=== PATIENT | male | born 1995 | race Caucasian/White ===

== ENCOUNTER 2024-12-01 18:08 | Emergency (ER) | payer OTHER, SELFPAY ==
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
[2024-12-01 18:09] VITALS: BP 145/99; PULSE 70; RESP 18; TEMP 36.9; O2SAT 100
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
[2024-12-01] MEDS: KETOROLAC 30 MG/ML VIAL (*BKC) IM (18:40)
[2024-12-01 20:03] VITALS: BP 125/89; PULSE 71; RESP 16; TEMP 36.8; O2SAT 100
== END 2024-12-01 20:04 | disposition home or self-care (01) ==
PROVIDERS: Emergency Provider Internal Medicine Critical Care Medicine
DX: S29.012A Strain of muscle and tendon of back wall of thorax, initial encounter (principal); S80.02XA Contusion of left knee, initial encounter; S09.90XA Unspecified injury of head, initial encounter; V49.88XA Car occupant (driver) (passenger) injured in other specified transport accidents, initial encounter
CPT/HCPCS: 72100; 73562; 96372; 99284; J1885

== ENCOUNTER 2025-03-30 06:33 | Emergency (ER) | payer OTHER, SELFPAY ==
--- NOTE | 2025-03-30 06:35 | ED.BACK ---
HPI - Back Pain/Injury General Chief Complaint: Extremity Problem,Nontraumatic Stated Complaint: NECK/SHOULDER PAIN Time Seen by Provider: 03/30/25 06:35 Source: patient Mode of arrival: ambulatory Limitations: no limitations History of Present Illness HPI Narrative: Patient is a 29-year-old male with left neck pain that radiates down his left shoulder. He awoke with pain. Worse pain in the morning. No injury. MD elicited complaint: other (Left neck pain) Pertinent past history: other (None) Onset (ago): day(s) (1) Timing: constant Severity: moderate Pain scale (0-10): 6 Similar Symptoms Previously: No Quality: sharp Location: left upper back Radiation: neck Exacerbating factors: movement and lifting Relieving factors: immobilization Context: other (Patient has a left neck pain that radiates to the left shoulder more so in the mornings) Associated symptoms: denies other symptoms Treatments prior to arrival: other (None) Related Data Allergies Allergy/AdvReac Type Severity Reaction Status Date / Time Penicillins Allergy Mild Rash Verified 03/30/25 06:37 Review of Systems Review of Systems: All systems reviewed & are unremarkable except as noted in HPI and below Constitutional: Constitutional: Reports no additional constitutional complaints Eyes: Eyes: Reports no additional eye complaints ENT: Reports system reviewed and no additional complaints, except as documented Cardiovascular: Cardiovascular: Reports no additional cardiovascular complaints Respiratory: Respiratory: Reports no additional respiratory complaints Gastrointestinal: Gastrointestinal: Reports no additional gastrointestinal complaints Genitourinary: Genitourinary: Reports no additional male genitourinary complaints Musculoskeletal: Musculoskeletal: Reports no additional musculoskeletal complaints Integumentary/Breasts: Skin/Breast: Reports system reviewed and no additional complaints, except as docu Neurologic: Reports system reviewed and no additional complaints, except as documented Psychiatric: Psychiatric: Reports no additional psychiatric complaints Endocrine: Endocrine: Reports no additional endocrine complaints Hematologic/Lymphatic: Hematologic/Lymphatic: Reports no additional hematologic/lymphatic complaints Allergic/Immunologic: Allergic/Immunologic: Reports no additional allergic/immunologic complaints Exam Const: General: healthy appearing Nutritional Appearance: well nourished Orientation/consciousness: patient oriented x3 HENMT: Head: normal to inspection Ears: external ears normal Face/Nose/Sinus: Normal external nose present Eyes: Conjunctivae: conjunctivae normal Pupils: Equal, round and reactive pupils present EOM: EOMs intact bilaterally Neck: Neck: normal visual inspection Chest: Chest palpation & inspection: normal inspection of the chest Resp: Effort & Inspection: normal respiratory effort and not labored Auscultation: clear to auscultation bilaterally and no crackles Cardio: Rate: regular rate Rhythm: regular rhythm Heart sounds: no murmurs GI: Inspection: non-distended GI Palp: Yes Soft to palpation and No Tenderness to palpation present (GI) Auscultation: normal bowel sounds : General: Yes bladder normal to palpation Back/Spine/Pelvis: Back: no CVA tenderness Other: Left cervical neck region that radiates to the left shoulder is tender to palpation and decreased range of motion Skin: General skin exam: normal color Rashes: no rashes Wounds: no wounds Neuro: General: patient oriented x3, moves all extremities and no meningeal signs Extrem: General: normal to inspection, no clubbing, cyanosis or edema and no pedal edema Psych: Mental Status: mental status grossly normal Affect: normal affect Attitude: cooperative Course Vital Signs Vital signs: Vital Signs Temperature 36.5 C 03/30/25 06:38 Pulse Rate 71 03/30/25 06:38 Respiratory Rate 18 03/30/25 06:38 Blood Pressure 126/82 03/30/25 06:38 Pulse Oximetry 99 03/30/25 06:38 Oxygen Delivery Room Air 03/30/25 06:38 Temperature 36.5 C 03/30/25 06:38 Pulse Rate 71 03/30/25 06:38 Respiratory Rate 18 03/30/25 06:38 Blood Pressure 126/82 03/30/25 06:38 Pulse Oximetry 99 03/30/25 06:38 Oxygen Delivery Room Air 03/30/25 06:38 MDM - Back Pain/Injury MDM Narrative Medical decision making narrative: Patient is a 29-year-old male with left neck pain more so in the morning. This is torticollis and patient needs muscle relaxation and pain relief. Soma. Toradol. Prednisone. Discharge Plan Discharge Clinical Impression: Acquired torticollis Patient Disposition: Home Condition: Stable Instructions: Spasmodic Torticollis (ED) Patient Language: Bulgarian Prescriptions: New carisoprodol [Soma] 350 mg tablet 350 mg PO BID PRN (Reason: muscle pain) Qty: 14 0RF prednisone 20 mg tablet 40 mg PO DAILY 3 Days Qty: 6 0RF Follow-up/Referrals: UNKNOWN,DOCTOR [Primary Care Provider] Time of Disposition: 06:46
[2025-03-30 06:38] VITALS: BP 126/82; PULSE 71; RESP 18; TEMP 36.5; O2SAT 99
[2025-03-30] MEDS: KETOROLAC (*BKC) 60 MG/2 ML VIAL IM (06:52)
[2025-03-30 07:09] VITALS: BP 115/75; PULSE 71; RESP 18; TEMP 36.6; O2SAT 99
== END 2025-03-30 07:11 | disposition home or self-care (01) ==
LOC: CHSED 06:51
PROVIDERS: Emergency Provider Emergency Medicine
DX: M43.6 Torticollis (principal)
CPT/HCPCS: 96372; 99283; J1885

== ENCOUNTER 2025-04-12 20:15 | Emergency (ER) | payer SELFPAY ==
--- NOTE | ~2025-04-12 | XR_ITS ---
XR chest 2V HOSTORY: chest tightness. shortness of breath. URI. COMPARISON:[ None] FINDINGS: Frontal and lateral views of the chest were obtained. The lungs are clear. The heart size is normal in size. Pulmonary vasculature is unremarkable. Osseous structures are intact. IMPRESSION: No acute lung findings.] [ ] Reviewed, dictated and finalized at location S.
[2025-04-12 20:21] VITALS: BP 117/85; PULSE 85; RESP 20; TEMP 36.6; O2SAT 100
--- NOTE | 2025-04-12 20:23 | ECG_ITS ---
Test Date: 2025-04-12 20:49:22 Measurements Intervals [place] Rate: 72 P: 43 NH: 171 QRS: 53 QRSD: 105 T: 56 QT: 369 QTc: 404 Interpretive Statements SINUS RHYTHM WITH SINUS ARRHYTHMIA NORMAL ECG No previous ECG available for comparison Electronically Signed On 04-15-2025 08:26:43 CDT by Alexx Talbert D.O.
--- NOTE | 2025-04-12 20:25 | ED_ITS ---
HPI - General Adult General Chief complaint: Upper Respiratory Infection Stated complaint: flu symptoms Time Seen by Provider: 04/12/25 20:18 Source: patient Limitations: no limitations History of Present Illness HPI narrative: The patient is an otherwise healthy 29-year-old with history of COVID-19 last year, 2023, with smoke cigarettes. He has no other medical conditions. Several of his coworkers have an upper respiratory infection over the last few days. The patient's symptoms started yesterday with what he describes as a fever maximum 100?, chills, occasional diaphoresis, rhinorrhea, but no nasal congestion or sore throat. He does have a cough occasionally productive of green sputum with a sensation of being short of breath especially with exertion and chest tightness and abdominal discomfort. He feels his face is hot. He has an occasional headache. His girlfriend and his son do not have similar symptoms. He denies nausea or vomiting. No urinary symptoms. No myalgias or aches and pains. Related Data Home Medications ?Medication ?Instructions ?Recorded ?Confirmed ?Last Taken ?Type No Home Medications 04/12/25 04/12/25 U nknown History Allergies Allergy/AdvReac Type Severity Reaction Status Date / Time Penicillins Allergy Mild Rash Verified 04/12/25 20:20 Review of Systems 2 Review of Systems: All systems reviewed & are unremarkable except as noted in HPI and below Constitutional: Constitutional: Denies chills, Reports excessive sweating (occasional sweats), Denies fatigue, Reports fever(s) (maximum 100 degrees today), Reports headache(s) and Denies weakness Eyes: Eyes: Denies change in vision and Denies photophobia ENT: Denies dysphagia, Reports dizziness (onset today), Reports headache(s), Denies lip swelling, Denies nasal congestion, Denies sore throat and Denies tongue swelling Comments: positive for rhinorrhea Cardiovascular: Cardiovascular: Reports chest pain (nonspecific chest discomfort), Denies syncope, Denies rapid heart rate and Reports dyspnea (with exertion) Respiratory: Respiratory: Reports chest congestion, Reports cough (productive of green sputum), Reports dyspnea (with exertion) and Denies wheezing Gastrointestinal: Gastrointestinal: Reports abdominal pain (mild diffuse), Denies constipation, Denies dysphagia, Denies diarrhea, Denies nausea and Denies vomiting Genitourinary: Genitourinary: Denies hematuria, Denies dysuria, Denies urinary frequency and Denies urinary urgency Musculoskeletal: Musculoskeletal: Denies back pain, Denies myalgias, Denies arthralgias, Denies joint swelling and Denies numbness Integumentary/Breasts: Skin/Breast: Denies pruritus, Denies erythema and Denies rash Neurologic: Denies confusion, Denies syncope, Denies focal weakness, Denies numbness and Denies weakness Psychiatric: Psychiatric: Denies anxiety and Denies confusion Endocrine: Endocrine: Denies excessive sweating and Denies fatigue Hematologic/Lymphatic: Hematologic/Lymphatic: Denies easy bleeding and Denies easy bruising Allergic/Immunologic: Allergic/Immunologic: Denies lip swelling, Denies tongue swelling and Denies wheezing PMFSH Social History Social History (Updated 04/12/25 @ 20:29 by Kyler Benoit MD) Smoking status: Current every day smoker Alcohol intake: unknown Substance use: unknown Exam 2 Const: General: healthy appearing, no acute distress, alert and well nourished Nutritional Appearance: well nourished Orientation/consciousness: patient oriented x3 Limitations: no limitations HENMT: Head: normal to inspection Ears: external ears normal F yousif/Nose/Sinus: normal facial exam Face and sinus: normal facial exam M outh: Yes moist mucous membranes Throat: posterior oropharynx normal Eyes: Conjunctivae: conjunctivae normal Pupils: Equal, round and reactive pupils present EOM: EOMs intact bilaterally Neck: Neck: normal visual inspection and no meningeal signs Chest: Chest palpation & inspection: normal inspection of the chest and no tenderness Resp: Effort & Inspection: normal respiratory effort and not labored A uscultation: clear to auscultation bilaterally, no crackles, no rhonchi and no wheezes Cardio: Rate: regular rate Rhythm: regular rhythm Heart sounds: no murmurs GI: Inspection: non-distended GI Palp: Yes Soft to palpation, No Tenderness to palpation present (GI), No Guarding due to palpation present (GI) and No Rebound tenderness present : General: Yes no CVA tenderness Back/Spine/Pelvis: Back: no CVA tenderness Cervical Spine: No Cervical spine tenderness Thoracic/Lumbar Spine: No thoracic spinal tenderness Skin: General skin exam: normal color Rashes: no rashes Wounds: no wounds Neuro: General: patient oriented x3, moves all extremities, no meningeal signs, no focal motor deficits and CN's II-XI intact bilaterally Cranial nerves: Yes Equal, round and reactive pupils present Speech: normal speech Motor exam (neuro): 5/5 motor strength present throughout Sensory Exam: n ormal sensation Extrem: General: normal to inspection and no clubbing, cyanosis or edema Psych: Mental Status: mental status grossly normal Affect: normal affect Course Course Emergency Course: 29-year-old male smoker who is otherwise healthy, who has had several coworkers with upper respiratory infections, who presents with similar finding since yesterday with occasional fevers 100?, chills, diaphoresis, rhinorrhea, cough productive of green sputum, shortness of breath with exertion, chest tightness, abdominal discomfort, occasional dizziness, and a slight headache. Workup in progress. This will include blood work, chest x-ray, and trouble swab as well as orthostatics. 21:03: The chest x-ray is unremarkable and so was the EKG. White blood cell count is normal. CBC is unremarkable. Awaiting rest of the workup. The patient is not orthostatic. Tylenol and ibuprofen was given for his symptoms. 21:12: the CMP is also unremarkable. Awaiting troponin and triple viral swab 21:18: Troponin is unremarkable and on and so was the triple swab for COVID RSV and influenza. A work note was given. He may return to work tomorrow. All questions answered. Discharged home. Vital Signs Vital signs: Vital Signs Temperature 36.6 C 04/12/25 20:21 Pulse Rate 85 04/12/25 20:21 Respiratory Rate 20 04/12/25 20:21 Blood Pressure 117/85 04/12/25 20:21 Pulse Oximetry 100 04/12/25 20:21 Oxygen Delivery Room Air 04/12/25 20:21 Temperature 36.6 C 04/12/25 21:23 Pulse Rate 75 04/12/25 21:23 Respiratory Rate 18 04/12/25 21:23 Blood Pressure 121/70 04/12/25 21:23 Pulse Oximetry 100 04/12/25 21:23 Oxygen Delivery Room Air 04/12/25 21:23 Medical Decision Making Vital Signs Vital Signs: Vital Signs Temperature 36.6 C 04/12/25 20:21 Pulse Rate 85 04/12/25 20:21 Respiratory Rate 20 04/12/25 20:21 Blood Pressure 117/85 04/12/25 20:21 Pulse Oximetry 100 04/12/25 20:21 Oxygen Delivery Room Air 04/12/25 20:21 Temperature 36.6 C 04/12/25 21:23 Pulse Rate 75 04/12/25 21:23 Respiratory Rate 18 04/12/25 21:23 Blood Pressure 121/70 04/12/25 21:23 Pulse Oximetry 100 04/12/25 21:23 Oxygen Delivery Room Air 04/12/25 21:23 Lab Data 04/12/25 20:47 04/12/25 20:47 Labs: Lab Results 04/12/25 04/12/25 Range/Units 20:27 20:47 WBC 6.8 (4.8-10.8) K/mm3 RBC 5.25 (4.70-6.10) M/mm3 Hgb 15.8 (14.0-18.0) g/dL Hct 43.2 (40.0-54.0) % MCV 82.3 (78.0-102.0) fL MCH 30.1 (27.0-31.0) pg MCHC 36.6 H (32-36) g/dL RDW 12.1 (11.6-14.4) % Plt Count 193 (150-420) K/mm3 MPV 9.5 (8.7-11.0) fl Immature Gran % (Auto) 0.1 H (0.0-0.0) % Neut % (Auto) 53.6 (50.0-70.0) % Lymph % (Auto) 33.2 (18.0-42.0) % [place] % (Auto) 11.3 H (2.0-11.0) % Eos % (Auto) 1.5 (1.0-6.0) % Baso % (Auto) 0.3 (0.0-1.0) % Lymph # (Auto) 2.24 (1.10-4.50) K/mm3 [place] # (Auto) 0.76 (0.10-0.90) K/mm3 Eos # (Auto) 0.10 (0.02-0.50) K/mm3 Baso # (Auto) 0.02 (0.00-0.10) K/mm3 Abs Immat Gran (auto) 0.01 H (0.00-0.00) K/mm3 Absolute Neuts (auto) 3.62 (1.70-7.20) K/mm3 Absolute Nucleated RBC 0.00 (0.00-0.00) K/mm3 Nucleated RBC % 0.0 (0-0.0) % Sodium 139 (137-145) mmol/L Potassium 3.8 (3.4-5.0) mmol/L Chloride 102 (98-107) mmol/L Carbon Dioxide 29 (22-30) mmol/L Anion Gap 8 (4-12) mmol/L BUN 12 (9-20) mg/dL Creatinine 0.88 (0.7-1.3) mg/dL Estim Creat Clear Calc 106 ml/min Estimated GFR > 60 (59 - ) Glucose 109 (65-110) mg/dL Calculated Osmolality 288 (285-295) mOsm/kg Calcium 9.8 (8.4-10.2) mg/dL Total Bilirubin 1.1 (0.2-1.3) mg/dL AST 37 (17-59) U/L ALT 53 H (6-50) U/L Alkaline Phosphatase 76 (38-126) U/L Troponin I < 0.012 (0.000-0.034) ng/mL Total Protein 8.5 H (6.3-8.2) g/dL Albumin 4.8 (3.5-5.1) g/dL Influenza A (RT-PCR) Negative (Negative) Influenza B (RT-PCR) Negative (Negative) RSV (RT-PCR) Negative (Negative) SARS-CoV-2 RNA (RT-PCR) Negative (Negative) Imaging Data My impression: NAD Radiologist's impression: XR chest 2V HOSTORY: chest tightness. shortness of breath. URI. COMPARISON:[ None] FINDINGS: Frontal and lateral views of the chest were obtained. The lungs are clear. The heart size is normal in size. Pulmonary vasculature is unremarkable. Osseous structures are intact. IMPRESSION: No acute lung findings.] [ ] Reviewed, dictated and finalized at location S. ECG Data EKG #1: Attestation: I personally reviewed and interpreted this ECG as follows: ECG completion date: 04/12/25 ECG completion time: 20:49 Prior ECG tracings: not available for review Interpretation: no acute ST elevation or depression. No ischemic changes. Sinus rhythm at 72 beats per minute. Normal intervals. EKG Interpretation: normal rate, sinus rhythm, no ectopy, no ST changes, normal QRS, normal QT, NL axis and no acute changes Discharge Plan Discharge Clinical Impression: Upper respiratory infection Patient Disposition: Home Condition: Stable Instructions: Cold Symptoms (ED) Additional Instructions: Your evaluation today did not reveal any acute findings. This included a chest x-ray, blood work, and an EKG of your heart. Swabs for COVID-19, RSV, and influenza were also negative. Drink plenty of fluids to stay hydrated. Take Tylenol as much as 1000 mg per dose with ibuprofen as much as 800 mg per dose as often as 4 times a day as needed for aches and pains Follow-up with your primary care provider in the next 1-2 weeks for a re- evaluation if your symptoms worsen. Try to rest and take it easy today Return if worse Patient Language: Malay Prescriptions: No Action No Home Medications Follow-up/Referrals: UNKNOWN,DOCTOR [Non-Staff] Clinical Impression: Upper respiratory infection Stand Alone Forms: Work/School Release IP
[2025-04-12] MEDS: ACETAMINOPHEN 500 MG TABLET 1000 MG PO (20:37)
[2025-04-12] MEDS: IBUPROFEN 400 MG TABLET 800 MG PO (20:38)
[2025-04-12 20:40] VITALS: BP 122/76; PULSE 73
[2025-04-12 20:42] VITALS: BP 126/85; PULSE 86
[2025-04-12 20:44] VITALS: BP 130/90; PULSE 84
[2025-04-12 20:51] LABS: Hematocrit 43.2 % (40.0-54.0); Hemoglobin 15.8 g/dL (14.0-18.0); Immature Granulocyte Percent A 0.1 % (0.0-0.0); Lymphocytes Absolute Auto 2.24 K/mm3 (1.10-4.50); Mean Corpuscular HGB Conc 36.6 g/dL (32-36); Mean Corpuscular Hemoglobin 30.1 pg (27.0-31.0); Mean Corpuscular Volume 82.3 fL (78.0-102.0); Nucleated Red Blood Cells Absolute Auto 0.00 K/mm3 (0.00-0.00); Nucleated Red Blood Cells Perc 0.0 % (0-0.0); Platelet Count Result 193 K/mm3 (150-420); Red Blood Count 5.25 M/mm3 (4.70-6.10); White Blood Count 6.8 K/mm3 (4.8-10.8)
[2025-04-12 21:02] LABS: Alanine Aminotransferase 53 U/L (6-50); Albumin Level 4.8 g/dL (3.5-5.1); Alkaline Phosphatase 76 U/L (38-126); Anion Gap 8 mmol/L (4-12); Aspartate Amino Transferase 37 U/L (17-59); Bilirubin,Total 1.1 mg/dL (0.2-1.3); Blood Urea Nitrogen 12 mg/dL (9-20); Calcium 9.8 mg/dL (8.4-10.2); Carbon Dioxide 29 mmol/L (22-30); Chloride 102 mmol/L (98-107); Estimated CRCL calculation 106 ml/min; Estimated Glomerular Filt Rate > 60; Glucose 109 mg/dL (65-110); Osmolality Calculated 288 mOsm/kg (285-295); Potassium 3.8 mmol/L (3.4-5.0); Sodium 139 mmol/L (137-145); Total Protein 8.5 g/dL (6.3-8.2)
[2025-04-12 21:14] LABS: Troponin I < 0.012 ng/mL (0.000-0.034)
[2025-04-12 21:16] LABS: Influenza A QL RT-PCR Negative (Negative); Influenza B QL RT-PCR Negative (Negative); RSV RNA, RT-PCR Negative (Negative); SARS-CoV-2 RNA PCR Negative (Negative)
[2025-04-12 21:23] VITALS: BP 121/70; PULSE 75; RESP 18; TEMP 36.6; O2SAT 100
== END 2025-04-12 21:23 | disposition home or self-care (01) ==
PROVIDERS: Emergency Provider Emergency Medicine; Referring Provider Family Medicine
DX: J06.9 Acute upper respiratory infection, unspecified (principal); F17.200 Nicotine dependence, unspecified, uncomplicated; Z20.822 Contact with and (suspected) exposure to COVID-19
CPT/HCPCS: 36415; 71046; 80053; 84484; 85025; 87637; 93005; 99284; A9270